=== PATIENT | female | born 1985 | race African-American/Black ===

== ENCOUNTER 2023-09-08 23:05 | Emergency (ER) | payer MEDICAID ==
[~2023-09-08] VITALS: Ht 177.8 cm; Wt 90.7 kg
[2023-09-08 23:13] VITALS: BP 136/71; PULSE 76; RESP 18; TEMP 97.1; O2SAT 98
[2023-09-08] MEDS ORDERED: KETOROLAC 30 MG/ML VIAL IM ONE (23:50)
[2023-09-08] MEDS ORDERED: DICYCLOMINE HCL LIQUID 20 MG, ALUMINUM HYD/MAG/SIMETHICONE 30 ML, LIDOCAINE VISCOUS 2% ... PO ONE ×3 (23:50)
[2023-09-08] MEDS ORDERED: FAMOTIDINE 20 MG TAB PO ONE (23:50)
[2023-09-08] MEDS ORDERED: NACL 0.9% 1,000 ML IV ONE (23:55)
[2023-09-08] MEDS ORDERED: KETOROLAC 30 MG/ML VIAL IVP ONE (23:55)
[2023-09-08] MEDS ORDERED: FAMOTIDINE 20 MG/2 ML VIAL IVP ONE (23:55)
[2023-09-09 00:06] LABS: BASOPHILS % (AUTO) 0.7 % (0.0-2.0); EOSINOPHILS # (AUTO) 0.1 K/uL (0-0.4); HEMATOCRIT 28.5 % (36-48); HEMOGLOBIN 8.9 g/dL (12.0-16.0); LYMPHOCYTES # (AUTO) 2.2 K/uL (2.5-16.5); LYMPHOCYTES % (AUTO) 38.4 % (20.5-51.1); MEAN CORPUSCULAR HEMOGLOBIN 22 pg (27-31); MEAN CORPUSCULAR HGB CONC 31 g/dL (33-37); MEAN CORPUSCULAR VOLUME 68.7 fL (80-94); MONOCYTES # (AUTO) 0.5 K/uL (0.8-1.0); MONOCYTES % (AUTO) 9.3 % (1.7-9.3); NEUTROPHILS # (AUTO) 2.9 K/uL (1.8-7.7); NEUTROPHILS % (AUTO) 49.6 % (42.2-75.2); PLATELET COUNT (AUTO) 206 K/uL (140-450); RED BLOOD CELL COUNT(AUTO) 4.14 MIL/uL (4.20-5.40); RED CELL DISTRIBUTION WIDTH 22.4 % (11.6-13.7); WHITE BLOOD COUNT (AUTO) 5.8 K/uL (4.8-10.8)
[2023-09-09 00:20] VITALS: BP 122/73; PULSE 69; RESP 18; O2SAT 97
[2023-09-09 00:22] LABS: ANION GAP 12.3 (8-16); CARBON DIOXIDE 23.7 mmol/L (21-32); CREATININE 0.8 mg/dL (0.6-1.3); TOTAL BILIRUBIN 0.3 mg/dL (0.0-1.0); TOTAL PROTEIN, SERUM 6.3 g/dL (6.4-8.2)
[2023-09-09 00:23] LABS: APPEARANCE,URINE SL CLOUDY (CLEAR); BILIRUBIN,URINE NEGATIVE (NEGATIVE); BLOOD, URINE NEGATIVE (NEGATIVE); COLOR,URINE YELLOW (YELLOW); LEUKOCYTE ESTERASE ,URINE NEGATIVE (NEGATIVE); NITRITE, URINE POSITIVE (NEGATIVE); PROTEIN,URINE NEGATIVE (NEGATIVE); UGLUCOSE NEGATIVE (NEGATIVE); UROBILINOGEN,URINE 0.2 EU/dL (0.2 - 1)
[2023-09-09 00:30] LABS: BACTERIA,URINE 10-30 (MOD) /HPF (None Seen); MUCUS,URINE 1+ /LPF (None Seen); RBC,URINE 0-5 /HPF (0-5); SQUAMOUS EPITHELIAL CELL,UR 20-50 /LPF (0-3 (FEW)); WBC,URINE 0-5 /HPF (0-5)
[2023-09-09 00:37] LABS: LACTIC ACID 1.3 mmol/L (0.4-2.0)
== END 2023-09-09 01:13 | disposition left against medical advice (07) ==
LOC: MED 23:05
DX: R10.31 Right lower quadrant pain (principal); R10.32 Left lower quadrant pain; D64.9 Anemia, unspecified; E87.6 Hypokalemia; E11.9 Type 2 diabetes mellitus without complications; Z98.890 Other specified postprocedural states
CPT/HCPCS: 36415; 74176; 80053; 81001; 81025; 83605; 83690; 85025; 87040; 87086; 96361; 96374; 96375; 99284; J1885; J3490; J7030